=== PATIENT | female | born 1985 | race Two or more races ===

== ENCOUNTER 2024-02-02 16:24 | Emergency (ER) | payer BC ==
[~2024-02-02] VITALS: Ht 180.3 cm; Wt 130.8 kg
[2024-02-02] MEDS: ACETAMINOPHEN 325 MG TAB PO ONE (17:05)
[2024-02-02] MEDS: SODIUM CHLORIDE 0.9% 1000ML 1,000 ML IV ONE (17:05)
[2024-02-02 17:38] VITALS: PULSE 100; RESP 18; TEMP 98.7; O2SAT 98
== END 2024-02-02 17:52 | disposition home or self-care (01) ==
LOC: FSED 16:31
DX: R50.9 Fever, unspecified (principal); J10.1 Influenza due to other identified influenza virus with other respiratory manifestations; R05.9 Cough, unspecified; R51.9 Headache, unspecified; Z11.52 Encounter for screening for COVID-19
CPT/HCPCS: 0223U; 87400; 99284; J7030